=== PATIENT | male | born 1990 | race Caucasian/White ===

== ENCOUNTER 2018-02-23 18:30 | Emergency (ER) | payer MEDICAID ==
[~2018-02-23] VITALS: Ht 172.7 cm; Wt 81.6 kg
[2018-02-23] MEDS ORDERED: XANAX2 MG ORAL (18:54)
[2018-02-23] MEDS ORDERED: MINIPRESS1 MG PO (18:54)
[2018-02-23] MEDS ORDERED: ZYPREXA2.5 MG ORAL (18:54)
[2018-02-23] MEDS ORDERED: ADDERALL 30 MG30 MG ORAL (18:54)
[2018-02-23] MEDS ORDERED: GABAPENTIN600 MG ORAL (18:54)
[2018-02-23] MEDS ORDERED: BUSPAR10 MG ORAL (18:54)
[2018-02-23] MEDS ORDERED: TRAZODONE HCL150 MG ORAL (18:54)
[2018-02-23] MEDS ORDERED: ZOLOFT100 MG ORAL (18:54)
[2018-02-23 19:59] LABS: BASOPHILS % (AUTO) 0.7 % (0.0-2.0); EOSINOPHILS % (AUTO) 8.2 % (0.0-3.0); HEMATOCRIT 41.2 % (42.0-52.0); HEMOGLOBIN 15.2 G/DL (14.2-18.0); LYMPHOCYTES % (AUTO) 23.4 % (20.0-45.0); MEAN CORPUSCULAR VOLUME 87 FL (80-99); MONOCYTES % (AUTO) 5.2 % (1.0-10.0); NEUTROPHILS % (AUTO) 62.5 % (45.0-75.0); PLATELET COUNT 220 K/UL (150-450); RED BLOOD COUNT 4.72 M/UL (4.70-6.10); RED CELL DISTRIBUTION WIDTH 10.6 % (11.6-14.8); WHITE BLOOD COUNT 12.8 K/UL (4.8-10.8)
[2018-02-23 20:00] LABS: APPEARANCE,URINE CLEAR; BILIRUBIN, URINE NEGATIVE (NEGATIVE); COLOR,URINE PALE YELLOW; GLUCOSE, URINE (UA) NEGATIVE (NEGATIVE); KETONES,URINE NEGATIVE (NEGATIVE); LEUKOCYTE ESTERASE ,URINE 2+ (NEGATIVE); NITRITE,URINE NEGATIVE (NEGATIVE); PH,URINE 7 (4.5-8.0); PROTEIN,URINE NEGATIVE (NEGATIVE); UROBILINOGEN,URINE NORMAL MG/DL (0.0-1.0)
[2018-02-23 20:12] LABS: ANION GAP 9 mmol/L (5-15); BLOOD UREA NITROGEN 11 mg/dL (7-18); CALCIUM 9.3 MG/DL (8.5-10.1); CARBON DIOXIDE 29 MMOL/L (21-32); CHLORIDE 101 MMOL/L (98-107); CREATININE 1.1 MG/DL (0.55-1.30); POTASSIUM 3.3 MMOL/L (3.5-5.1); SODIUM 139 MMOL/L (136-145)
[2018-02-23] MEDS ORDERED: Ketorolac 30mg Inj IV ONE (20:15)
[2018-02-23 20:16] LABS: ALANINE AMINOTRANSFERASE 38 U/L (12-78); ALBUMIN 4.3 G/DL (3.4-5.0); ALBUMIN/GLOBULIN RATIO 1.4 (1.0-2.7); ALKALINE PHOSPHATASE 83 U/L (46-116); ASPARTATE AMINO TRANSFERASE 24 U/L (15-37); BILIRUBIN,TOTAL 0.6 MG/DL (0.2-1.0)
[2018-02-23] MEDS ORDERED: Isovue-300 100ml vial INJ PRN (21:15)
--- NOTE | 2018-02-23 21:46 | Emergency Room Report ---
History of Present Illness General Chief Complaint: Abdominal Pain Source: Patient Present Illness HPI This patient has a long history of abdominal pain. He does have a primary care physician that is following him for this. He states that about 6 years ago there was concern that he may have Crohn's disease, although, his workup apparently was negative at that time. The patient states he has been having recurrence of his symptoms to include abdominal pain and food intolerance. He states he also has diffuse joint pain and back pain. He denies fever or chills. He denies nausea or vomiting. He denies diarrhea. He does have a referral for a event management consultant. He has no other complaints. Allergies: Coded Allergies: SULFA (SULFONAMIDE ANTIBIOTICS) (Verified Allergy, Unknown, 02/23/18) Patient History Past Medical History: see triage record, other - IBS Social History: Reports: smoking; Denies: alcohol use, drug use Reviewed Nursing Documentation: PMH: Agreed; PSxH: Agreed Review of Systems All Other Systems: negative except mentioned in HPI Physical Exam Vital Signs Date Time Temp Pulse Resp B/P (MAP) Pulse Ox O2 Delivery O2 Flow Rate FiO2 02/23/18 18:41 98.3 105 18 121/73 94 Room Air 98.2 Sp02 EP Interpretation: reviewed, normal General Appearance: no apparent distress, alert, GCS 15, non-toxic Head: normocephalic, atraumatic Eyes: bilateral eye normal inspection, bilateral eye PERRL ENT: hearing grossly normal, normal pharynx, no angioedema, normal voice Neck: full range of motion, supple/symm/no masses Respiratory: chest non-tender, lungs clear, normal breath sounds, no respiratory distress, no retraction, no accessory muscle use, speaking full sentences Cardiovascular #1: regular rate, rhythm, no edema Gastrointestinal: normal bowel sounds, non tender, soft, non-distended, no guarding, no rebound Rectal: deferred Musculoskeletal: back normal, gait/station normal, normal range of motion, non- tender Neurologic: alert, oriented x3, responsive, motor strength/tone normal, sensory intact, speech normal Psychiatric: judgement/insight normal, memory normal, mood/affect normal, no suicidal/homicidal ideation Skin: normal color, no rash, warm/dry, well hydrated Medical Decision Making Diagnostic Impression: Primary Impression: Abdominal pain Additional Impression: Arthralgia ER Course This patient has diffuse abdominal pain and arthralgias. He may have an undiagnosed rheumatoid arthritis or immunologic condition. CT of the abdomen and pelvis is unremarkable. The patient's CRP is elevated but ESR is not elevated. The patient's laboratory workup to include CBC, CMP are unremarkable. The patient is being followed by his primary care physician. I instructed him to follow up with the event management consultant as previously planned. I also recommended that he see a chalk molding machine operator. At this time, I did not identify an emergency medical condition. The patient is given close return precautions and follow up instructions. Laboratory Tests Test 02/23/18 19:23 White Blood Count 12.8 K/UL (4.8-10.8) H Red Blood Count 4.72 M/UL (4.70-6.10) Hemoglobin 15.2 G/DL (14.2-18.0) Hematocrit 41.2 % (42.0-52.0) L Mean Corpuscular Volume 87 FL (80-99) Mean Corpuscular Hemoglobin 32.1 PG (27.0-31.0) H Mean Corpuscular Hemoglobin Concent 36.8 G/DL (32.0-36.0) H Red Cell Distribution Width 10.6 % (11.6-14.8) L Platelet Count 220 K/UL (150-450) Mean Platelet Volume 7.8 FL (6.5-10.1) Neutrophils (%) (Auto) 62.5 % (45.0-75.0) Lymphocytes (%) (Auto) 23.4 % (20.0-45.0) Monocytes (%) (Auto) 5.2 % (1.0-10.0) Eosinophils (%) (Auto) 8.2 % (0.0-3.0) H Basophils (%) (Auto) 0.7 % (0.0-2.0) Erythrocyte Sedimentation Rate 11 MM/HR (0-15) Urine Color Pale yellow Urine Appearance Clear Urine pH 7 (4.5-8.0) Urine Specific [place] 1.010 (1.005-1.035) Urine Protein Negative (NEGATIVE) Urine Glucose (UA) Negative (NEGATIVE) Urine Ketones Negative (NEGATIVE) Urine Occult Blood Negative (NEGATIVE) Urine Nitrite Negative (NEGATIVE) Urine Bilirubin Negative (NEGATIVE) Urine Urobilinogen Normal MG/DL (0.0-1.0) Urine Leukocyte Esterase 2+ (NEGATIVE) H Urine RBC 0-2 /HPF (0 - 0) H Urine WBC 2-4 /HPF (0 - 0) Urine Squamous Epithelial Cells None /LPF (NONE/OCC) Urine Bacteria Few /HPF (NONE) Sodium Level 139 MMOL/L (136-145) Potassium Level 3.3 MMOL/L (3.5-5.1) L Chloride Level 101 MMOL/L (98-107) Carbon Dioxide Level 29 MMOL/L (21-32) Anion Gap 9 mmol/L (5-15) Blood Urea Nitrogen 11 mg/dL (7-18) Creatinine 1.1 MG/DL (0.55-1.30) Estimate Glomerular Filtration Rate > 60 mL/min (>60) Glucose Level 93 MG/DL (74-106) Calcium Level 9.3 MG/DL (8.5-10.1) Total Bilirubin 0.6 MG/DL (0.2-1.0) Aspartate Amino Transferase (AST) 24 U/L (15-37) Alanine Aminotransferase (ALT) 38 U/L (12-78) Alkaline Phosphatase 83 U/L (46-116) C-Reactive Protein, Quantitative 1.2 mg/dL (0.00-0.90) H Total Protein 7.4 G/DL (6.4-8.2) Albumin 4.3 G/DL (3.4-5.0) Globulin 3.1 g/dL Albumin/Globulin Ratio 1.4 (1.0-2.7) Lipase 100 U/L (73-393) Urine Opiates Screen Negative (NEGATIVE) Urine Barbiturates Screen Negative (NEGATIVE) Phencyclidine (PCP) Screen Negative (NEGATIVE) Urine Amphetamines Screen Positive (NEGATIVE) H Urine Benzodiazepines Screen Positive (NEGATIVE) H Urine Cocaine Screen Negative (NEGATIVE) Urine Marijuana (THC) Screen Negative (NEGATIVE) Laboratory Tests Test 02/23/18 19:23 White Blood Count 12.8 K/UL (4.8-10.8) H Red Blood Count 4.72 M/UL (4.70-6.10) Hemoglobin 15.2 G/DL (14.2-18.0) Hematocrit 41.2 % (42.0-52.0) L Mean Corpuscular Volume 87 FL (80-99) Mean Corpuscular Hemoglobin 32.1 PG (27.0-31.0) H Mean Corpuscular Hemoglobin Concent 36.8 G/DL (32.0-36.0) H Red Cell Distribution Width 10.6 % (11.6-14.8) L Platelet Count 220 K/UL (150-450) Mean Platelet Volume 7.8 FL (6.5-10.1) Neutrophils (%) (Auto) 62.5 % (45.0-75.0) Lymphocytes (%) (Auto) 23.4 % (20.0-45.0) Monocytes (%) (Auto) 5.2 % (1.0-10.0) Eosinophils (%) (Auto) 8.2 % (0.0-3.0) H Basophils (%) (Auto) 0.7 % (0.0-2.0) Erythrocyte Sedimentation Rate Pending Urine Color Pale yellow Urine Appearance Clear Urine pH 7 (4.5-8.0) Urine Specific [place] 1.010 (1.005-1.035) Urine Protein Negative (NEGATIVE) Urine Glucose (UA) Negative (NEGATIVE) Urine Ketones Negative (NEGATIVE) Urine Occult Blood Negative (NEGATIVE) Urine Nitrite Negative (NEGATIVE) Urine Bilirubin Negative (NEGATIVE) Urine Urobilinogen Normal MG/DL (0.0-1.0) Urine Leukocyte Esterase 2+ (NEGATIVE) H Urine RBC 0-2 /HPF (0 - 0) H Urine WBC 2-4 /HPF (0 - 0) Urine Squamous Epithelial Cells None /LPF (NONE/OCC) Urine Bacteria Few /HPF (NONE) Sodium Level 139 MMOL/L (136-145) Potassium Level 3.3 MMOL/L (3.5-5.1) L Chloride Level 101 MMOL/L (98-107) Carbon Dioxide Level 29 MMOL/L (21-32) Anion Gap 9 mmol/L (5-15) Blood Urea Nitrogen 11 mg/dL (7-18) Creatinine 1.1 MG/DL (0.55-1.30) Estimate Glomerular Filtration Rate > 60 mL/min (>60) Glucose Level 93 MG/DL (74-106) Calcium Level 9.3 MG/DL (8.5-10.1) Total Bilirubin 0.6 MG/DL (0.2-1.0) Aspartate Amino Transferase (AST) 24 U/L (15-37) Alanine Aminotransferase (ALT) 38 U/L (12-78) Alkaline Phosphatase 83 U/L (46-116) C-Reactive Protein, Quantitative 1.2 mg/dL (0.00-0.90) H Total Protein 7.4 G/DL (6.4-8.2) Albumin 4.3 G/DL (3.4-5.0) Globulin 3.1 g/dL Albumin/Globulin Ratio 1.4 (1.0-2.7) Lipase 100 U/L (73-393) Urine Opiates Screen Negative (NEGATIVE) Urine Barbiturates Screen Negative (NEGATIVE) Phencyclidine (PCP) Screen Negative (NEGATIVE) Urine Amphetamines Screen Positive (NEGATIVE) H Urine Benzodiazepines Screen Positive (NEGATIVE) H Urine Cocaine Screen Negative (NEGATIVE) Urine Marijuana (THC) Screen Negative (NEGATIVE) CT/MRI/US Diagnostic Results CT/MRI/US Diagnostic Results : Imaging Test Ordered: CT abd/pelvis Impression No acute findings. See official report. Last Vital Signs Date Time Temp Pulse Resp B/P (MAP) Pulse Ox O2 Delivery O2 Flow Rate FiO2 02/23/18 18:41 98.3 105 18 121/73 94 Room Air 98.2 Disposition: HOME, SELF-CARE Condition: Stable Referrals: NON PHYSICIAN (PCP) Patient Instructions: Abdominal Pain, Adult Mary Lou Gaston DO Feb 23, 2018 21:46
[2018-02-23] MEDS ORDERED: MOBIC7.5 MG ORAL (22:42)
[2018-02-23] MEDS ORDERED: DOXYCYCLINE MO100 MG ORAL (22:42)
[2018-02-23 22:50] VITALS: BP 121/73
--- NOTE | 2018-02-24 09:01 | Diagnostic Imaging Report ---
Clinical Indication: Abdominal pain, nausea, vomiting, diarrhea, bloody stool Technique: No oral contrast utilized, per emergency room physician request IV administration nonionic contrast. Venous phase spiral acquisition obtained through the abdomen and pelvis. Multiplanar reconstructions were generated. Total dose length product is 6 mGycm. CTDIvol(s) 14 mGy. Dose reduction achieved using automated exposure control Comparison: none Findings: There is evidence of prior appendectomy. There are equivocally small sigmoid diverticula. No evidence of diverticulitis. No small bowel distention. No free or loculated intraperitoneal air or fluid. There is a tiny fat-containing umbilical hernia. Distal esophagus, stomach, duodenum are unremarkable. The liver, gallbladder, bile ducts, pancreas, spleen, adrenals, left kidney are all unremarkable. Right kidney demonstrates a 1.2 cm upper pole cyst and a parapelvic subcentimeter low-attenuation lesion which is too small to characterize. No retroperitoneal or mesenteric mass or adenopathy. No pelvic mass or adenopathy. The included lung bases are clear. The bones are unremarkable Impression: No acute or significant abnormality Evidence of prior appendectomy Equivocal sigmoid diverticulosis. No evidence of diverticulitis Right renal cyst. Right renal parapelvic subcentimeter low-attenuation lesion, too small to characterize, most likely benign parapelvic cysts. No further follow-up necessary Incidental finding of small fat-containing umbilical hernia. This agrees with the preliminary interpretation provided overnight by [facility] service. The CT scanner at [facility] is accredited by the [employer] and the scans are performed using protocols designed to limit radiation exposure to as low as reasonably achievable to attain images of sufficient resolution adequate for diagnostic evaluation.
== END 2018-02-24 03:24 | disposition home or self-care (01) ==
LOC: EMR 20:38
DX: R10.84 Generalized abdominal pain (principal); M25.50 Pain in unspecified joint; N28.1 Cyst of kidney, acquired; K46.9 Unspecified abdominal hernia without obstruction or gangrene; K57.30 Diverticulosis of large intestine without perforation or abscess without bleeding; Z88.2 Allergy status to sulfonamides
CPT/HCPCS: 36415; 74177; 80053; 80307; 81003; 83690; 85025; 85651; 86140; 96374; 99284; J1885; Q9967

== ENCOUNTER 2019-04-05 23:14 | Emergency (ER) | payer MEDICAID ==
[~2019-04-05] VITALS: Ht 172.7 cm; Wt 81.6 kg
[~2019-04-05 23:14] MED LIST: ADDERALL 30 MG30 MG ORAL; BUSPAR10 MG ORAL; DOXYCYCLINE MO100 MG ORAL; GABAPENTIN600 MG ORAL; MINIPRESS1 MG PO; MOBIC7.5 MG ORAL; TRAZODONE HCL150 MG ORAL; XANAX2 MG ORAL; ZOLOFT100 MG ORAL; ZYPREXA2.5 MG ORAL
[2019-04-05 23:15] VITALS: BP 113/63
--- NOTE | 2019-04-05 23:15 | NUR ---
ED Nurse Note: Patient brought in by [address] due to ETOH. Has hx of anxiety. Patient is cooperative, alert and oriented, verbally responsive. Breathing even and unlabored. No SOB. VSS. As per patient, he will go home after he is sober up.
--- NOTE | 2019-04-05 23:34 | Emergency Room Report ---
History of Present Illness General Chief Complaint: Alcohol Intoxication Source: Patient Present Illness HPI This is a 29-year-old male with no past medical history. He presents with chief complaint of alcohol intoxication with nausea and vomiting. He just had a break-up from a long-term relationship. He was drinking alcohol tonight. He was [place] the bus stop and had nausea vomiting. He was vomiting. No fever chills but no diarrhea. No blood. Denies suicidal thoughts homicidal thought. Denies any other complaint. Allergies: Coded Allergies: SULFA (SULFONAMIDE ANTIBIOTICS) (Verified Allergy, Unknown, 02/23/18) Patient History Past Medical History: see triage record, old chart reviewed Past Surgical History: none Pertinent Family History: none Social History: Reports: alcohol use Immunizations: other Reviewed Nursing Documentation: PMH: Agreed; PSxH: Agreed Nursing Documentation-PMH Past Medical History: No History, Except For History Of Psychiatric Problem: Yes - ANXIETY Review of Systems Eye: Denies: eye pain, blurred vision ENT: Denies: ear pain, nose congestion, throat swelling Respiratory: Denies: cough, shortness of breath Cardiovascular: Denies: chest pain, palpitations Gastrointestinal: Reports: nausea, vomiting; Denies: diarrhea Musculoskeletal: Denies: back pain, joint pain Skin: Denies: rash Neurological: Denies: headache, numbness Endocrine: Denies: increased thirst, increased urine Hematologic/Lymphatic: Denies: easy bruising All Other Systems: negative except mentioned in HPI Physical Exam Vital Signs Date Time Temp Pulse Resp B/P (MAP) Pulse Ox O2 Delivery O2 Flow Rate FiO2 04/05/19 23:11 99.0 85 18 123/80 (94) 98 Room Air Vitals normal Sp02 EP Interpretation: reviewed, normal General Appearance: well appearing, no apparent distress, alert, other - Is retching Head: normocephalic, atraumatic Eyes: bilateral eye PERRL, bilateral eye EOMI ENT: hearing grossly normal, normal pharynx Neck: full range of motion, supple, no meningismus Respiratory: chest non-tender, lungs clear, normal breath sounds Cardiovascular #1: regular rate, rhythm, no murmur Gastrointestinal: normal bowel sounds, non tender, no mass, no organomegaly, no bruit, non-distended Musculoskeletal: back normal, gait/station normal, normal range of motion Psychiatric: mood/affect normal Medical Decision Making Diagnostic Impression: Primary Impression: Acute alcoholic intoxication Qualified Codes: F10.920 - Alcohol use, unspecified with intoxication, uncomplicated ER Course Presents with acute alcohol intoxication. No evidence of suicidal thoughts or homicidal thought. No obstruction. Better after Zofran. Will discharge home. Last Vital Signs Date Time Temp Pulse Resp B/P (MAP) Pulse Ox O2 Delivery O2 Flow Rate FiO2 04/05/19 23:11 99.0 85 18 123/80 (94) 98 Room Air Status: improved Disposition: HOME, SELF-CARE Condition: Stable Patient Instructions: Alcohol Intoxication, [id number] Additional Instructions: Do not drink to excess. Follow-up with your doctor in 7 days. Return if worse. Solo Cordova MD Apr 05, 2019 23:34
[2019-04-06 02:05] VITALS: BP 102/60
--- NOTE | 2019-04-06 02:06 | NUR ---
ED Nurse Note: Patient seen sleeping in bed. Breathing even and unlabored. Afebrile. No n/v noted. VSS.
[2019-04-06 02:55] VITALS: BP 102/60
--- NOTE | 2019-04-06 02:55 | NUR ---
ER DISCHARGE NOTE: Patient is cleared to be discharged per ERMD, pt is aox4, on room air, with stable vital signs. Patient became aggressive, uncooperative, called security. Refused to sign discharged summary. pt id band and iv site removed without complications. pt is able to ambulate with steady gait. pt took all his belongings.
--- NOTE | 2019-04-06 03:20 | NUR ---
ED Nurse Note: Pt became violent at time of discharge, screaming and refusing to leave; security assissted with discharge, with difficulty. ANDREWD called, spoke with [employer] P[employer] Operator [phone] - will dispatch.
== END 2019-04-06 02:55 | disposition home or self-care (01) ==
LOC: EDBD 23:14 → EMR 23:35
DX: F10.920 Alcohol use, unspecified with intoxication, uncomplicated (principal); F41.9 Anxiety disorder, unspecified; Z88.2 Allergy status to sulfonamides; Z59.0 Homelessness
CPT/HCPCS: 36415; 80329; 96361; 96374; 99284; J2405